=== PATIENT | female | born 1985 | race Hispanic/Latino ===

== ENCOUNTER 2016-11-05 14:50 | Outpatient (CLI) | payer SELFPAY | END 2016-11-05 14:51 | disposition home or self-care (01) | LOC: HPCALD 14:50 | PROVIDERS: ATTEND Physician Assistant | DX: N39.0 Urinary tract infection, site not specified (principal) | CPT/HCPCS: 87077; 87086; 87186 ==

== ENCOUNTER 2021-05-17 21:02 | Emergency (ER) | payer SELFPAY ==
[2021-05-17 21:31] LABS: Pregnancy Test - Urine (BHCG) POSITIVE (Negative); Pregu Control Background? CLEAR/WHITE (CLR/WHITE); Pregu Control Bar Appear? YES (CONTROL BAR)
[2021-05-17 21:34] LABS: Bacteria/HPF 1+ HPF (None Seen); Bilirubin Negative (Negative); Blood, Urine Negative (Negative); Clarity Clear (Clear); Glucose, Urine (Dipstick) Negative (Negative); Ketone, Urine Trace mg/dL (Negative); Leukocyte Small (Negative); Nitrite Negative (Negative); Protein, Urine (Dipstick) Trace mg/dL (Neg-Trace); RBC/HPF 0-3 HPF (0-3); Squamous Epithelial 0-3 HPF (0-3); Urobilinogen 0.2 mg/dL (Less than 2); WBC/HPF 0-3 HPF (0-3); pH, Urine 7.5 (5.0-9.0)
[2021-05-17 22:07] LABS: #Basophils 0.1 thou/uL (0.0-0.2); #Eosinphils 0.8 thou/uL (0.0-0.7); #Lymphocytes 3.4 thou/uL (1.20-3.40); #Monocytes 0.5 thou/uL (0.11-0.59); %Basophils 0.8 % (0.0-1.0); %Eosinophils 7.1 % (0.0-10.0); %Lymphocytes 31.2 % (21.0-51.0); %Monocytes 4.9 % (0.0-10.0); %Neutrophils 55.9 % (42.0-75.0); Hemoglobin 12.4 g/dL (12.0-16.0); Mean Corpuscular Hemoglobin 30.9 pg (27.0-31.0); Mean Corpuscular Volume 90.8 fL (78.0-98.0); Mean Platelet Volume 9.2 fL (7.4-10.4); Platelet Count 198 thou/uL (130-400); RBC Distribution Width 11.9 % (11.5-14.5); Red Blood Cell (RBC) Count 4.02 mill/uL (4.20-5.40); White Blood Cell (WBC) Count 10.7 thou/uL (4.8-10.8)
[2021-05-17 22:20] LABS: ALT (SGPT) 16 U/L (8-55); AST (SGOT) 18 U/L (5-34); Albumin 4.2 g/dL (3.5-5.0); Alkaline Phosphatase 50 U/L (40-110); Anion Gap 15 mmol/L (10-20); BUN (Urea Nitrogen) 12 mg/dL (7.0-18.7); Bilirubin, Total 0.4 mg/dL (0.2-1.2); Calc. Creatinine Clearance 0 mL/min (70-130); Calcium 9.2 mg/dL (7.8-10.44); Carbon Dioxide 23 mmol/L (22-29); Chloride 105 mmol/L (98-107); Globulin 2.9 g/dL (2.4-3.5); Glucose 108 mg/dL (70-105); Potassium 3.7 mmol/L (3.5-5.1); Protein, Total 7.1 g/dL (6.0-8.3); Sodium 139 mmol/L (136-145)
[2021-05-17] MEDS ORDERED: Morphine 10 MG/ML VIAL ONE (22:43)
== END 2021-05-17 23:58 | disposition short-term general hospital (02) ==
LOC: BURERS 21:02
DX: R10.30 Lower abdominal pain, unspecified (principal); O99.891 Other specified diseases and conditions complicating pregnancy
CPT/HCPCS: 36415; 80053; 81003; 81015; 81025; 84702; 85025; 86850; 86900; 86901; 96374; J2270

== ENCOUNTER 2021-05-20 03:33 | Emergency (ER) | payer SELFPAY ==
[2021-05-20] MEDS ORDERED: HYDROcodone/Acetaminophen 5/325 mg Tablet ONE (04:29)
== END 2021-05-20 04:36 | disposition home or self-care (01) ==
LOC: BURERS 03:33
DX: G89.18 Other acute postprocedural pain (principal); R10.84 Generalized abdominal pain
CPT/HCPCS: 99283